=== PATIENT | female | born 1970 | race Caucasian/White ===

== ENCOUNTER 2017-04-14 00:24 | Emergency (ER) | payer MEDICAID ==
[~2017-04-14] VITALS: Ht 154.9 cm; Wt 66.0 kg
[~2017-04-14 00:24] MED LIST: GLIP5TAB13 PO; IBUP-1542 PO; MTF1000T PO; TRAM50TA2 PO
[2017-04-14 00:48] VITALS: Ht 154.9 cm; Wt 66.0 kg
[2017-04-14] MEDS ORDERED: HYDROCODONE/APAP (5/325) TAB PO ONE (03:00)
--- NOTE | 2017-04-14 06:13 | RADRPT ---
PROCEDURE: XR Ribs. CLINICAL INDICATION: Chest pain. TECHNIQUE: 8 frontal and oblique views of the right ribs were obtained. The images were reviewed on a PACS workstation. COMPARISON: None. FINDINGS: There is no evidence for a rib fracture. The underlying lung parenchyma is intact without evidence f or pneumothorax. IMPRESSION: No acute rib fracture identified. .Solomon Kaur MD, Date Time Electronically viewed and signed by .Solomon Kaur MD, MD on 04/14/2017 06:12 .T/
[2017-04-14] MEDS ORDERED: IBUP-1542 PO (06:17)
--- NOTE | 2017-04-14 06:24 | ERA ---
ER Documentation Chief Complaint Date/Time DATE: 04/14/17 TIME: 06:19 Chief Complaint upper back pain HPI Patient's presenting with a one-month history of upper right back pain. Patient states that the pain worsens with palpation. Describes the pain is dull. Patient has not taking any medication to relieve the pain. Patient denies pain in any other areas. Patient has no other complaints at this time. Patient denies chest pain, pain with exertion, mechanism of injury, history of cancer, recent illness, unexplained weight loss, saddle anesthesia, generalized neurological deficit, incontinence, urinary retention, thoracic pain, or pain at rest. ROS All systems reviewed and are negative except as per history of present illness. Medications Home Meds Active Scripts Ibuprofen* (Motrin*) 600 Mg Tab, 600 MG PO Q6H Y for PAIN AND OR ELEVATED TEMP, #30 TAB Prov:DAVID AG PA-C 04/14/17 Tramadol HCl (Tramadol HCl) 50 Mg Tablet, 50 MG PO Q4 Y for PAIN, #16 TAB Prov:RICH ROSARIO MD 12/15/15 Ibuprofen* (Motrin*) 600 Mg Tab, 600 MG PO Q6, #20 TAB Prov:RICH ROSARIO MD 12/15/15 Reported Medications Glipizide* (Glipizide*) 5 Mg Tablet, 5 MG PO BID, TAB 05/28/15 Metformin* (Glucophage*) 1,000 Mg Tablet, 1000 MG PO BID, TAB 05/28/15 Allergies Allergies: Coded Allergies: No Known Allergy (Unverified , 12/15/15) PMhx/Soc History of Surgery: No Anesthesia Reaction: No Hx Neurological Disorder: No Hx Respiratory Disorders: No Hx Cardiac Disorders: No Hx Psychiatric Problems: No Hx Miscellaneous Medical Probl: Yes (dm) Hx Alcohol Use: No Hx Substance Use: No Hx Tobacco Use: No Smoking Status: Never smoker Physical Exam Vitals Vital Signs Date Time Temp Pulse Resp B/P Pulse Ox O2 Delivery O2 Flow Rate FiO2 04/14/17 00:48 98.3 71 18 114/64 95 Physical Exam Const: Overweight 46-year-old female Head: Atraumatic Eyes: Normal Conjunctiva ENT: Normal External Ears, Nose and Mouth. Neck: Full range of motion..~ No meningismus. Resp: Clear to auscultation bilaterally Cardio: Regular rate and rhythm, no murmurs Abd: Soft, non tender, non distended. Normal bowel sounds Skin: No petechiae or rashes Back: Tender to palpation in the right upper thoracic rib region about 8-10 cm lateral to T4. No midline or flank tenderness. Mild tenderness of the affected area. No paraspinal muscle tenderness. Ext: No cyanosis, or edema Neur: Awake and alert Psych: Normal Mood and Affect Results 24 hrs Current Medications Medications (Trade) Dose Ordered Sig/Rosendo Route PRN Reason Start Time Stop Time Status Last Admin Dose Admin Acetaminophen/ Hydrocodone Bitart ([place] (5/325)) 1 tab ONCE ONCE PO 04/14/17 03:00 04/14/17 03:01 DC 04/14/17 03:35 Procedures/MDM 46-year-old female being worked up and evaluated for right upper back pain. Due to the area a right rib x-ray was taken to evaluate the right upper ribs with the patient was tender to palpation. The x-ray revealed no acute/bony abnormalities. Patient has no neurological deficits or concerning factors for neurovascular compromise. Most likely diagnosis at this time is musculoskeletal pain versus costochondritis. We will go ahead and prescribe the patient ibuprofen. Have instructed the patient to follow-up with PCP for a more thorough evaluation and possible referral to a specialist. Patient's vitals are stable and her current condition is appropriate for discharge. Patient will be discharged at this time with discharge instructions and return precautions. I have spoken to my attending and he agrees with this assessment and plan. Departure Diagnosis: Primary Impression: Back pain Qualified Code: M54.6 - Chronic right-sided thoracic back pain Condition: Stable Patient Instructions: Back Pain (Acute Or Chronic) Additional Instructions: Follow up with your PCP within the next 1-3 days for a more thorough evaluation and a possible referral to a specialist. Return the the emergency department immediately if symptoms worsen or change. If you have any questions regarding medications, ask your pharmacist or us before you leave. If any adverse reactions occur while taking your medications, discontinue the treatment and return to the emergency department immediately. Take your medications as directed, and complete the entire course of treatment. DAVID AG PA-C Apr 14, 2017 06:24
[2017-04-14 06:27] VITALS: BP 98/57; PULSE 62; RESP 18
== END 2017-04-14 06:27 | disposition home or self-care (01) ==
LOC: FTE 00:24
DX: M54.6 Pain in thoracic spine (principal); E11.9 Type 2 diabetes mellitus without complications; Z79.84 Long term (current) use of oral hypoglycemic drugs
CPT/HCPCS: 71100; Z7502; Z7610